=== PATIENT | female | born 1965 | race Caucasian/White ===

== ENCOUNTER 2021-11-10 20:41 | Emergency (ER) | payer OTHER, SELFPAY ==
--- NOTE | ~2021-11-10 | US_ITS ---
EXAMINATION: US ABDOMEN LIMITED CLINICAL INFORMATION: Right upper quadrant pain. COMPARISON: CT 11/10/2021 TECHNIQUE: Real-time imaging of the right upper quadrant abdominal viscera. FINDINGS: Per technologist report, visualization is suboptimal due to bowel gas and body habitus. PANCREAS: The visualized proximal portion of the pancreas is unremarkable. The distal portion is obscured secondary to overlying bowel gas. LIVER: The liver is normal in size. The liver contour is normal. Parenchymal echogenicity is normal. No focal hepatic lesion. There is no intrahepatic biliary duct dilatation seen. GALLBLADDER: The gallbladder is physiologically distended without evidence of stones, sludge, polyps, wall thickening or pericholecystic fluid. Right upper quadrant tenderness was reported during the exam. COMMON BILE DUCT: Normal in caliber measuring 0.4 cm in diameter. RIGHT KIDNEY: No hydronephrosis. A 0.4 similar calculus is noted in the lower kidney, with additional calcifications rather demonstrated on recent CT. The kidney measures 13.0 cm in maximum dimension. FREE FLUID: None. US/US abdomen limited IMPRESSION: 1. Although right upper quadrant tenderness was reported during the exam, the gallbladder appears unremarkable. 2. Right renal calculi, better demonstrated on recent CT. No hydronephrosis.
--- NOTE | ~2021-11-10 | XR_ITS ---
EXAMINATION: XR CHEST CLINICAL INFORMATION: Tachycardia COMPARISON: Chest 04/22/2019 TECHNIQUE: Frontal view of the chest was obtained. FINDINGS: There is elevated right hemidiaphragm with right basilar platelike atelectasis. Rest of lungs are well-expanded and clear. Heart size and pulmonary vascularity is normal. There are mediastinal jonathan and median sternotomy sutures from previous intervention. No gross bony abnormality seen. XR/XR chest 1V IMPRESSION: Elevated right hemidiaphragm with underlying right lower lobe atelectasis.
--- NOTE | ~2021-11-10 | CT_ITS ---
EXAMINATION: CT ABDOMEN AND PELVIS WITH CONTRAST CLINICAL INFORMATION: Right upper quadrant pain with nausea and vomiting COMPARISON: 08/26/2017 TECHNIQUE: Multidetector volumetric images were obtained from the superior aspect of the liver through the pubic symphysis following administration 70 mL of Omnipaque 350 intravenous contrast. Sagittal and coronal reformatted images were obtained on the technologist's workstation. Oral contrast: No This CT examination was performed using dose optimization techniques as appropriate, variously including the following: *Automated exposure control *Adjustment of mA and/or kV according to patient size (this includes techniques or standardized protocols for targeted exams where dose is matched to indication/reason for exam; i.e. extremities or head) *Use of iterative reconstruction technique DLP: 588 mGy-cm FINDINGS: LUNG BASES: There is subsegmental atelectasis at the right lung base. A 3 mm peripheral left lower lobe nodule on image [id number] appears similar to prior chest CT of 02/22/2018. Coronary artery calcifications are present, and patient is suspected to be status post CABG. LIVER, GALLBLADDER, AND BILIARY TREE: The liver is normal in size, shape, and attenuation. No focal hepatic lesion or biliary ductal dilatation is present. The gallbladder is unremarkable with no evidence of radiopaque gallstones, gallbladder wall thickening, or obvious pericholecystic inflammatory changes. PANCREAS: Unremarkable. SPLEEN: Unremarkable. ADRENAL GLANDS: There is a right adrenal nodule measuring up to 1.3 cm, stable in size compared to prior imaging and likely benign. Left adrenal gland is unremarkable. KIDNEYS AND URETERS: No hydronephrosis or obstructing calculus bilaterally. Multiple scattered calculi are present throughout both kidneys measuring up to a few millimeters in size. Small cyst noted off the upper left kidney; no follow-up recommended. Nonspecific bilateral perinephric stranding. BLADDER: Minimally distended and grossly unremarkable. GASTROINTESTINAL TRACT: No evidence of bowel obstruction or significant wall thickening. The appendix is unremarkable. No free fluid or free air is seen. ABDOMINAL WALL: No significant hernia is appreciated. LYMPH NODES: Normal. VASCULAR: There is atherosclerotic calcification along the aorta and iliac arteries. PELVIC VISCERA: Unremarkable. OSSEOUS STRUCTURES: Unremarkable. CT/CT abdomen pelvis w con IMPRESSION: No acute findings identified in the abdomen/pelvis. Chronic changes as noted above. Fleischner guidelines were followed.
[2021-11-10 21:45] VITALS: BP 101/53; PULSE 127; RESP 17; TEMP 37; O2SAT 94; BMI 28.3
--- NOTE | 2021-11-10 22:01 | ECG_ITS ---
Test Reason : tachy Blood Pressure : / mmHG Vent. Rate : 123 BPM Atrial Rate : 123 BPM P-R Int : 126 ms QRS Dur : 076 ms QT Int : 352 ms P-R-T Axes : 064 018 054 degrees QTc Int : 503 ms Sinus tachycardia Otherwise normal ECG When compared with ECG of 22-APR-2019 10:22, Vent. rate has increased BY 43 BPM Referred By: Generic ED Physician Electronically Signed By:Rickey Avila
[2021-11-10 22:15] LABS: MANUAL DIFF FLAG NO
--- NOTE | 2021-11-10 22:22 | PC.NURSE ---
IV established, labs and EKG obtained in Triage. Pt resting in bed, awaiting primary MD nidia.
[2021-11-10 22:35] LABS: Anion Gap 17 (12-20); Blood Urea Nitrogen 15 mg/dL (9-16); Calcium 9.9 mg/dL (8.4-10.2); Carbon Dioxide 26 mmol/L (22-29); Chloride 101 mmol/L (96-108); Creatinine Clr Calc Pharmacy 41.9; Estimated Glomerular Filt Rate 39; Glucose Random 199 mg/dL (60-115); Potassium 3.8 mmol/L (3.3-5.1); Sodium 140 mmol/L (135-145)
[2021-11-10 22:37] LABS: Basophils Absolute Auto 0.1 X10*3/uL (0.0-0.2); Basophils Percent Auto 0.7 % (0-2); Eosinophils Absolute Auto 0.3 X10*3/uL (0.0-0.4); Eosinophils Percent Auto 1.8 % (0-4); Hematocrit 35.8 % (37.0-47.0); Hemoglobin 12.2 g/dl (12.0-16.0); Imm Gran Abs Auto 0.07 X10*3/uL (0.00-0.03); Imm Gran Pct Auto 0.5 % (0.0-0.4); Lymphocytes Absolute Auto 2.4 X10*3/uL (1.2-4.9); Lymphocytes Percent Auto 16.3 % (20-40); Mean Corpuscular HGB Conc 34.1 g/dl (31.0-35.0); Mean Corpuscular Hemoglobin 29.4 pg (27.0-33.0); Mean Corpuscular Volume 86.3 fL (80.0-98.0); Mean Platelet Volume 10.4 fL (9.4-12.3); Monocytes Absolute Auto 1.1 X10*3/uL (0.1-1.2); Monocytes Percent Auto 7.7 % (2-11); Neutrophils Absolute Auto 10.7 x10*3/uL (2.0-8.3); Platelet Count 303 X10*3/uL (160-400); Red Blood Count 4.15 X10*6/uL (4.20-5.50); Red Cell Distribution Width 13.6 % (11.0-16.0); Troponin-I High Sensitivity 11.7 ng/L (<3.5-17.0); White Blood Count 14.6 X10*3/uL (4.8-10.8)
--- NOTE | 2021-11-10 23:39 | ED_ITS ---
HPI - Abdominal Pain General Chief Complaint: Nausea/Vomiting/Diarrhea Stated Complaint: vomiting Time Seen by Provider: 11/10/21 23:38 Source: patient and family (Daughter) Mode of arrival: ambulatory History of Present Illness HPI narrative: 56-year-old female with history of hepatitis-C, diabetes, hypertension, who is brought in by her daughter as she is visiting from [place] on vacation in began developing significant right upper quadrant pain associated with nausea and vomiting as well as chills. She does have a positive abdominal surgical history of Caesarean section but states that she has continued to pass flatus and denies any urinary symptoms. Otherwise, patient denies shortness of breath, chest pain. Related Data Previous Rx's Medication Instructions Recorded ondansetron 4 mg disintegrating 4 mg PO Q8H PRN #10 tab 11/11/21 tablet Allergies Allergy/AdvReac Type Severity Reaction Status Date / Time pantoprazole AdvReac Unknown dizziness Verified 11/11/21 05:27 Review of Systems Review of Systems Pertinent positives and negatives as stated in HPI 10 point review of systems is otherwise negative. PMFSH Past Medical History Source: nursing notes reviewed Medical History Arthritis CAD (coronary artery disease) Carotid stenosis, left Convulsions Depression Diabetes Encephalomalacia Fibromyalgia Gastric ulcer GERD (gastroesophageal reflux disease) Heart attack Hepatitis C Hyperlipidemia Hypertension Schizophrenia Stroke Surgical History History of heart surgery Social History Social History Advance Directives: No Advance Directives Information Provided: Yes Physical Exam ED Vital Signs: Vital Signs - 24 hr 11/10/21 21:45 11/11/21 00:17 11/11/21 04:10 Temperature 98.6 F 96.8 F 97.5 F Pulse Rate 127 H 106 H 108 H Respiratory Rate 17 15 20 Blood Pressure 101/53 L 141/73 H 119/67 Pulse Oximetry 94 97 94 BMI result Body Mass Index 28.3 VITAL SIGNS: Reviewed. GENERAL: Well developed, well nourished, in no acute distress. HEAD: Normocephalic/atraumatic, EYES: PERRLA, EOMI intact without pain, no nystagmus/pallor/icterus noted EARS: Ext canals without abnormality, TMs non-bulging and non-erythematous NOSE: Nares patent bilateral OROPHARYNX: no oral lesions noted, posterior pharynx clear and non-erythematous without noted tonsillar enlargement/erythema/exudates NECK: Supple, no adenopathy LUNGS: Normal breath sounds. No adventitious sounds or accessory muscle use. SpO2<94> CARDIOVASCULAR: Regular rate and rhythm without noted murmurs, no JVD or lower extremity edema. ABDOMEN: Soft, tenderness in the right upper quadrant (Pedro's positive), non- distended with bowel sounds. MUSCULOSKELETAL: No tenderness, deformities, or effusions noted on gross inspection. EXTREMITIES: No cyanosis, clubbing or edema. SKIN: Inspection of the skin reveals no rashes NEUROLOGIC: Alert and oriented x 4. Strength and sensation to light touch were grossly intact x 4. Course Course Course Narrative: 56-year-old female with history and clinical presentation suggestive of cholecystitis and possible pancreatitis. On review of all investigations patient has a noted white count and was also observed to have an elevated heart rate. She will receive antibiotics after lactic acid and blood cultures are drawn. 2340: I suspect infection. On review of all investigations there are no acute findings to suggest cholecystitis, and after patient received IV fluids as well as pain medication on re-evaluation states that her pain has improved. Patient will receive p.o. challenge. Patient able to tolerate oral intake and otherwise felt to have a combination of mild pancreatitis and gastritis. The leukocytosis may have been attributable to patient's nausea and vomiting. She was instructed to follow-up with primary care provider. MDM - Abdominal Pain Lab Data Result diagrams: 11/10/21 22:11 11/10/21 22:11 Labs: Lab Results 11/10/21 11/10/21 11/10/21 Range/Units 22:11 22:11 22:11 WBC 14.6 H (4.8-10.8) X10*3/uL RBC 4.15 L (4.20-5.50) X10*6/uL Hgb 12.2 (12.0-16.0) g/dl Hct 35.8 L (37.0-47.0) % MCV 86.3 (80.0-98.0) fL MCH 29.4 (27.0-33.0) pg MCHC 34.1 (31.0-35.0) g/dl RDW 13.6 (11.0-16.0) % Plt Count 303 (160-400) X10*3/uL MPV 10.4 (9.4-12.3) fL Immature Gran % (Auto) 0.5 H (0.0-0.4) % Neut % (Auto) 73.0 (45-73) % Lymph % (Auto) 16.3 L (20-40) % [place] % (Auto) 7.7 (2-11) % Eos % (Auto) 1.8 (0-4) % Baso % (Auto) 0.7 (0-2) % Lymph # (Auto) 2.4 (1.2-4.9) X10*3/uL [place] # (Auto) 1.1 (0.1-1.2) X10*3/uL Eos # (Auto) 0.3 (0.0-0.4) X10*3/uL Baso # (Auto) 0.1 (0.0-0.2) X10*3/uL Abs Immat Gran (auto) 0.07 H (0.00-0.03) X10*3/uL Absolute Neuts (auto) 10.7 H (2.0-8.3) x10*3/uL Absolute Nucleated RBC 0.000 (0.0-0.012) X10*3/uL Nucleated RBC % (auto) 0.0 (0.0-0.2) /100WBC Sodium 140 (135-145) mmol/L Potassium 3.8 (3.3-5.1) mmol/L Chloride 101 (96-108) mmol/L Carbon Dioxide 26 (22-29) mmol/L Anion Gap 17 (12-20) BUN 15 (9-16) mg/dL Creatinine 1.41 H (0.5-1.4) mg/dL Estim Creat Clear Calc 41.9 Estimated GFR 39 Random Glucose 199 H (60-115) mg/dL Lactic Acid (0.5-2.0) mmol/L Calcium 9.9 (8.4-10.2) mg/dL Total Bilirubin 0.4 (0.0-1.0) mg/dL Direct Bilirubin < 0.2 (0.0-0.5) mg/dL AST 12 (5-31) U/L ALT 10 (0-31) U/L Alkaline Phosphatase 76 (39-117) U/L Troponin I High Sens 11.7 (<3.5-17.0) ng/L Total Protein 7.5 (6.5-8.0) g/dL Albumin 4.1 (3.5-5.0) g/dL Lipase 118 H (8-78) U/L 11/11/21 Range/Units 00:35 WBC (4.8-10.8) X10*3/uL RBC (4.20-5.50) X10*6/uL Hgb (12.0-16.0) g/dl Hct (37.0-47.0) % MCV (80.0-98.0) fL MCH (27.0-33.0) pg MCHC (31.0-35.0) g/dl RDW (11.0-16.0) % Plt Count (160-400) X10*3/uL MPV (9.4-12.3) fL Immature Gran % (Auto) (0.0-0.4) % Neut % (Auto) (45-73) % Lymph % (Auto) (20-40) % [place] % (Auto) (2-11) % Eos % (Auto) (0-4) % Baso % (Auto) (0-2) % Lymph # (Auto) (1.2-4.9) X10*3/uL [place] # (Auto) (0.1-1.2) X10*3/uL Eos # (Auto) (0.0-0.4) X10*3/uL Baso # (Auto) (0.0-0.2) X10*3/uL Abs Immat Gran (auto) (0.00-0.03) X10*3/uL Absolute Neuts (auto) (2.0-8.3) x10*3/uL Absolute Nucleated RBC (0.0-0.012) X10*3/uL Nucleated RBC % (auto) (0.0-0.2) /100WBC Sodium (135-145) mmol/L Potassium (3.3-5.1) mmol/L Chloride (96-108) mmol/L Carbon Dioxide (22-29) mmol/L Anion Gap (12-20) BUN (9-16) mg/dL Creatinine (0.5-1.4) mg/dL Estim Creat Clear Calc Estimated GFR Random Glucose (60-115) mg/dL Lactic Acid 1.6 (0.5-2.0) mmol/L Calcium (8.4-10.2) mg/dL Total Bilirubin (0.0-1.0) mg/dL Direct Bilirubin (0.0-0.5) mg/dL AST (5-31) U/L ALT (0-31) U/L Alkaline Phosphatase (39-117) U/L Troponin I High Sens (<3.5-17.0) ng/L Total Protein (6.5-8.0) g/dL Albumin (3.5-5.0) g/dL Lipase (8-78) U/L ECG Data Attestation: I personally reviewed and interpreted this ECG as follows: Prior ECG tracings: available for review Interpretation: Sinus tachycardia, HR-123, no STEMI, MD/QRS/QTC within normal limits Discharge Plan Discharge Clinical Impression: Gastritis, Pancreatitis Patient Disposition: Home, Self-Care Instructions: Gastritis (ED), Pancreatitis (ED), Diet for Stomach Ulcers and Gastritis (ED) Additional Instructions: 1. Resume all home medications as prescribed. 2. Follow-up with your primary care provider in the next 2-3 days for re- evaluation and further outpatient management. Return to the ER for worsening symptoms. Prescriptions: New ondansetron 4 mg tablet,disintegrating 4 mg PO Q8H PRN (Reason: nausea and vomiting) Qty: 10 0RF Print Language: Kyrgyz
[2021-11-10 23:55] LABS: Alanine Aminotransferase 10 U/L (0-31); Albumin Level 4.1 g/dL (3.5-5.0); Alkaline Phosphatase 76 U/L (39-117); Aspartate Amino Transferase 12 U/L (5-31); Bilirubin Direct < 0.2 mg/dL (0.0-0.5); Bilirubin Total 0.4 mg/dL (0.0-1.0); Lipase 118 U/L (8-78); Total Protein 7.5 g/dL (6.5-8.0)
[2021-11-11] MEDS: Acetaminophen 325 MG TABLET 975 MG PO (00:07)
[2021-11-11] MEDS: 0.9 % Sodium Chloride 1,000 ML 999 ML IV (00:07)
[2021-11-11] MEDS: Ketorolac Tromethamine 30 MG/ML VIAL 15 MG IVPUSH (00:08)
--- NOTE | 2021-11-11 00:13 | PC.NURSE ---
Pt returns from CT, medicated per NOV. Pt aware of plan for blood work prior to ABX. Awaiting MD jacob.
[2021-11-11] MEDS: iohexoL 350 MG/ML 100 ML INFUS..BTL 70 ML IV (00:16)
[2021-11-11 00:17] VITALS: BP 141/73; PULSE 106; RESP 15; TEMP 36; O2SAT 97
[2021-11-11] MEDS: Piperacillin Sodium/Tazobactam 3.375 GM in 0.9 % Sodium Chloride 50 ML IV (00:36)
--- NOTE | 2021-11-11 00:36 | PC.NURSE ---
BCX and lactic obtained and sent. Zosyn infusing per NOV.
[2021-11-11 00:52] LABS: Lactic Acid 1.6 mmol/L (0.5-2.0)
--- NOTE | 2021-11-11 02:13 | PC.NURSE ---
Pt off to U/S on hospital bed.
[2021-11-11 04:10] VITALS: BP 119/67; PULSE 108; RESP 20; TEMP 36.4; O2SAT 94
--- NOTE | 2021-11-11 04:10 | PC.NURSE ---
Pt unable to tolerate PO, reporting nausea after drinking juice. MD aware.
[2021-11-11] MEDS: ondansetron HCL 4 MG/2 ML VIAL IVPUSH (04:48)
--- NOTE | 2021-11-11 05:27 | PC.NURSE ---
Pt reports relief of pain/nausea. Pt requesting RX for Zofran. aware.
== END 2021-11-11 05:52 | disposition home or self-care (01) ==
PROVIDERS: Emergency Provider Student in an Organized Health Care Education/Training Program
DX: K29.70 Gastritis, unspecified, without bleeding (principal); K85.90 Acute pancreatitis without necrosis or infection, unspecified; R10.11 Right upper quadrant pain; E11.9 Type 2 diabetes mellitus without complications; I10 Essential (primary) hypertension; E78.5 Hyperlipidemia, unspecified; B19.20 Unspecified viral hepatitis C without hepatic coma
CPT/HCPCS: 36415; 71045; 74177; 76705; 80048; 80076; 83605; 83690; 84484; 85025; 87040; 93005; 96361; 96365; 96375; 99284; J1885; J2405; J2543; Q9967

== ENCOUNTER 2021-11-12 20:50 | Emergency (ER) | payer MEDICARE, SELFPAY ==
[2021-11-12 20:52] VITALS: BP 149/82; PULSE 129; RESP 16; TEMP 36.9; O2SAT 99; BMI 28.3
[2021-11-12 21:11] LABS: MANUAL DIFF FLAG NO
[2021-11-12 21:14] LABS: Basophils Absolute Auto 0.1 X10*3/uL (0.0-0.2); Basophils Percent Auto 0.7 % (0-2); Eosinophils Absolute Auto 0.5 X10*3/uL (0.0-0.4); Eosinophils Percent Auto 2.5 % (0-4); Hematocrit 38.7 % (37.0-47.0); Hemoglobin 13.2 g/dl (12.0-16.0); Imm Gran Abs Auto 0.16 X10*3/uL (0.00-0.03); Imm Gran Pct Auto 0.9 % (0.0-0.4); Lymphocytes Absolute Auto 4.7 X10*3/uL (1.2-4.9); Lymphocytes Percent Auto 25.6 % (20-40); Mean Corpuscular HGB Conc 34.1 g/dl (31.0-35.0); Mean Corpuscular Hemoglobin 29.3 pg (27.0-33.0); Mean Corpuscular Volume 85.8 fL (80.0-98.0); Mean Platelet Volume 9.9 fL (9.4-12.3); Monocytes Absolute Auto 1.4 X10*3/uL (0.1-1.2); Monocytes Percent Auto 7.5 % (2-11); Neutrophils Absolute Auto 11.4 x10*3/uL (2.0-8.3); Neutrophils Percent Auto 62.8 % (45-73); Platelet Count 340 X10*3/uL (160-400); Red Blood Count 4.51 X10*6/uL (4.20-5.50); Red Cell Distribution Width 13.5 % (11.0-16.0); White Blood Count 18.2 X10*3/uL (4.8-10.8)
[2021-11-12 21:37] LABS: Anion Gap 18 (12-20); Blood Urea Nitrogen 15 mg/dL (9-16); Calcium 10.1 mg/dL (8.4-10.2); Carbon Dioxide 25 mmol/L (22-29); Chloride 100 mmol/L (96-108); Estimated Glomerular Filt Rate 38; Glucose Random 196 mg/dL (60-115); Sodium 139 mmol/L (135-145)
[2021-11-12 21:46] VITALS: BP 133/77; PULSE 115; RESP 22; O2SAT 99
[2021-11-12 22:00] LABS: COVID-19 Test Negative (Negative)
[2021-11-12 22:01] LABS: Lipase 139 U/L (8-78)
--- NOTE | 2021-11-12 22:19 | ED.ABDPAIN ---
HPI - Abdominal Pain General Chief Complaint: Abdominal Pain Stated Complaint: stomach, abdominal pain Time Seen by Provider: 11/12/21 21:16 Source: patient, family (Daughter) and educational sign language interpreter Mode of arrival: ambulatory History of Present Illness HPI narrative: 56-year-old female who presents with her daughter with recurrence of her mid upper abdominal discomfort associated with nausea/vomiting that began after she drink coffee and Sprite. I had previously evaluated patient on 11/10 at which time she had similar symptoms. At this time there is collateral information that the daughter states she is being worked up in [place] for gastritis and has been scheduled for endoscopy and is supposed to be taking Carafate, 10 mL, prior to meals. The patient states that ?it was not working so I decided to stop taking it?. Otherwise, patient denies any fever, chills, urinary symptoms. Related Data Previous Rx's Medication Instructions Recorded ondansetron 4 mg disintegrating 4 mg PO Q8H PRN #10 tab 11/11/21 tablet Allergies Allergy/AdvReac Type Severity Reaction Status Date / Time pantoprazole AdvReac Unknown dizziness Verified 11/12/21 21:54 Review of Systems Review of Systems Pertinent positives and negatives as stated in HPI 10 point review of symptoms is otherwise negative. PMFSH Past Medical History Source: nursing notes reviewed Medical History Arthritis CAD (coronary artery disease) Carotid stenosis, left Convulsions Depression Diabetes Encephalomalacia Fibromyalgia Gastric ulcer GERD (gastroesophageal reflux disease) Heart attack Hepatitis C Hyperlipidemia Hypertension Schizophrenia Stroke Surgical History History of heart surgery Social History Social History Advance Directives: No Advance Directives Information Provided: No Patient : No Physical Exam ED Vital Signs: Vital Signs - 24 hr 11/12/21 20:52 11/12/21 21:46 11/12/21 23:14 Temperature 98.4 F Pulse Rate 129 H 115 H 109 H Respiratory Rate 16 22 H 18 Blood Pressure 149/82 H 133/77 153/83 H Pulse Oximetry 99 99 97 BMI result Body Mass Index 28.3 VITAL SIGNS: Reviewed. GENERAL: Well developed, well nourished, in moderate distress. HEAD: Normocephalic/atraumatic EYES: PERRLA, EOMI EARS: Ext canals without abnormality OROPHARYNX: no oral lesions noted, posterior pharynx clear LUNGS: Normal breath sounds. No adventitious sounds or accessory muscle use. SpO2<99> CARDIOVASCULAR: Regular rate and rhythm without noted murmurs, no JVD or lower extremity edema. ABDOMEN: Soft, tenderness to palpation in epigastric non-distended with bowel sounds. MUSCULOSKELETAL: No tenderness, deformities, or effusions noted on gross inspection. EXTREMITIES: No cyanosis, clubbing or edema. SKIN: Inspection of the skin reveals no rashes NEUROLOGIC: Alert and oriented x 4. Strength and sensation to light touch were grossly intact x 4. Course Course Course Narrative: 56-year-old female with history and clinical presentation consistent with acute on chronic gastritis with associated nausea and vomiting. On review of all investigations the lipase and leukocytosis is noted be elevated, however this is felt to be strongly associated with patient's gastritis flare with associated nausea vomiting. She is otherwise afebrile. Re-evaluation, patient is feeling much better and the pain has completely resolved after a GI cocktail and treatment with sucralfate. She is otherwise discharged home in stable condition with instructions to take her Carafate as directed. MDM - Abdominal Pain Lab Data Result diagrams: 11/12/21 21:03 11/12/21 21:03 Labs: Lab Results 11/12/21 11/12/21 11/12/21 Range/Units 21:00 21:03 21:03 WBC 18.2 H (4.8-10.8) X10*3/uL RBC 4.51 (4.20-5.50) X10*6/uL Hgb 13.2 (12.0-16.0) g/dl Hct 38.7 (37.0-47.0) % MCV 85.8 (80.0-98.0) fL MCH 29.3 (27.0-33.0) pg MCHC 34.1 (31.0-35.0) g/dl RDW 13.5 (11.0-16.0) % Plt Count 340 (160-400) X10*3/uL MPV 9.9 (9.4-12.3) fL Immature Gran % (Auto) 0.9 H (0.0-0.4) % Neut % (Auto) 62.8 (45-73) % Lymph % (Auto) 25.6 (20-40) % [place] % (Auto) 7.5 (2-11) % Eos % (Auto) 2.5 (0-4) % Baso % (Auto) 0.7 (0-2) % Lymph # (Auto) 4.7 (1.2-4.9) X10*3/uL [place] # (Auto) 1.4 H (0.1-1.2) X10*3/uL Eos # (Auto) 0.5 H (0.0-0.4) X10*3/uL Baso # (Auto) 0.1 (0.0-0.2) X10*3/uL Abs Immat Gran (auto) 0.16 H (0.00-0.03) X10*3/uL Absolute Neuts (auto) 11.4 H (2.0-8.3) x10*3/uL Absolute Nucleated RBC 0.000 (0.0-0.012) X10*3/uL Nucleated RBC % (auto) 0.0 (0.0-0.2) /100WBC Sodium 139 (135-145) mmol/L Potassium 4.0 (3.3-5.1) mmol/L Chloride 100 (96-108) mmol/L Carbon Dioxide 25 (22-29) mmol/L Anion Gap 18 (12-20) BUN 15 (9-16) mg/dL Creatinine 1.44 H (0.5-1.4) mg/dL Estim Creat Clear Calc 41.0 Estimated GFR 38 Random Glucose 196 H (60-115) mg/dL Calcium 10.1 (8.4-10.2) mg/dL Lipase 139 H (8-78) U/L COVID-19 (KOBI) Negative (Negative) COVID-19 Clin Com See Note Discharge Plan Discharge Clinical Impression: Gastritis Patient Disposition: Home, Self-Care Instructions: Diet for Stomach Ulcers and Gastritis (ED), Gastritis (ED) Additional Instructions: 1. Reanude todos los medicamentos caseros seg?n lo prescrito, especialmente el Carafate. Debe consumir 10 ml antes de cada comida. 2. Revise las recomendaciones sobre cambios en la dieta. Regrese a la scotty de emergencias si los s?ntomas empeoran. Prescriptions: No Action ondansetron 4 mg tablet,disintegrating 4 mg PO Q8H PRN (Reason: nausea and vomiting) Qty: 10 0RF Print Language: Chinese
[2021-11-12] MEDS: Lidocaine HCl Viscous 2 % 15 ML SOLUTION 10 ML MUCOUS MEM (22:41)
[2021-11-12] MEDS: Magnesium Hydrox/Alum Hydrox 30 ML ORAL.SUSP PO (22:42)
[2021-11-12] MEDS: Sucralfate Oral Suspension 1 GM/10 ML ORAL.SUSP PO (23:12)
[2021-11-12 23:14] VITALS: BP 153/83; PULSE 109; RESP 18; O2SAT 97
== END 2021-11-12 23:35 | disposition home or self-care (01) ==
PROVIDERS: Emergency Provider Student in an Organized Health Care Education/Training Program
DX: K29.70 Gastritis, unspecified, without bleeding (principal); K25.9 Gastric ulcer, unspecified as acute or chronic, without hemorrhage or perforation; R10.9 Unspecified abdominal pain; Z20.822 Contact with and (suspected) exposure to COVID-19; E11.9 Type 2 diabetes mellitus without complications; I10 Essential (primary) hypertension; E78.5 Hyperlipidemia, unspecified
CPT/HCPCS: 36415; 80048; 83690; 85025; 87635; 99283; 99284